=== PATIENT | female | born 1985 | race Caucasian/White ===

== ENCOUNTER 2023-06-07 18:13 | Inpatient (IN) | payer OTHER ==
[~2023-06-07] VITALS: Ht 154.9 cm; Wt 62.2 kg
[2023-06-07] MEDS ORDERED: BUSP15TA47 PO (18:26)
[2023-06-07] MEDS ORDERED: QUET150T14 PO (18:26)
[2023-06-07] MEDS ORDERED: LAMO100T3 PO (18:26)
[2023-06-07 19:06] LABS: HEMATOCRIT 39.7 % (36.0-47.0); HEMOGLOBIN 12.7 g/dl (12.0-15.5); MEAN CORPUSCULAR HEMOGLOBIN 27.9 pg (27.0-33.0); MEAN CORPUSCULAR VOLUME 87.3 fl (80.0-96.0); PLATELET COUNT, AUTOMATED 275 10^3/uL (150-450); RED BLOOD COUNT 4.55 10^6/uL (4.00-5.40); WHITE BLOOD COUNT 6.7 10^3/uL (4.0-10.0)
[2023-06-07 19:21] LABS: AMPHETAMINES LEVEL URINE NEGATIVE (NEGATIVE); BARBITURATES URINE NEGATIVE (NEGATIVE); BENZODIAZEPINES URINE NEGATIVE (NEGATIVE); COCAINE METABOLITE URINE NEGATIVE (NEGATIVE); METHADONE URINE NEGATIVE (NEGATIVE); OPIATES URINE NEGATIVE (NEGATIVE); PHENCYCLIDINE URINE NEGATIVE (NEGATIVE)
[2023-06-07 19:23] LABS: CANNABINOIDS URINE POSITIVE (NEGATIVE); ETHYL ALCOHOL (ETHANOL) < 0.003 % (0.000-0.010)
[2023-06-07 19:25] LABS: ACETAMINOPHEN LEVEL < 2.0 UG/ML (10.0-20.0); ALKALINE PHOSPHATASE 62 U/L (46-116); ALT/SGPT 12 U/L (7.0-40); AST/SGOT 9 U/L (<34); BILIRUBIN,DIRECT 0.1 MG/DL (<0.4); BILIRUBIN,TOTAL 0.4 MG/DL (0.3-1.2); BLOOD UREA NITROGEN 13 MG/DL (9-23); CALCIUM LEVEL 9.7 MG/DL (8.5-10.1); CARBON DIOXIDE LEVEL 30 MMOL/L (20-31); CHLORIDE LEVEL 105 MMOL/L (98-107); CREATININE FOR GFR 0.81 MG/DL (0.55-1.30); GLOMERULAR FILTRATION RATE > 60.0 (>60); GLUCOSE, FASTING 78 MG/DL (60-100); POTASSIUM SERUM 4.1 MMOL/L (3.5-5.1); SALICYLATE LEVEL < 3.0 MG/DL (<30); SODIUM LEVEL 142 MMOL/L (136-145)
[2023-06-07 19:26] LABS: HCG, SERUM QUALITATIVE NEGATIVE (NEGATIVE)
[2023-06-07 19:27] LABS: THYROID STIMULATING HORMONE 1.812 uIU/ML (0.55-4.78)
[2023-06-07] MEDS ORDERED: MED REC CURRENTLY UNOBTAINABLE XX SCH (20:00)
[2023-06-07] MEDS ORDERED: ACETAMINOPHEN TAB 650MG DOSE (2X325MG) PO PRN (21:00)
[2023-06-07] MEDS ORDERED: MAALOX 30 ML SUSP *UDC PO PRN (21:00)
[2023-06-07] MEDS ORDERED: MOM 30ML SUSPENSION UDC PO PRN (21:00)
[2023-06-07 22:13] VITALS: BP 104/65; TEMP 98.4; O2SAT 99
[2023-06-07] MEDS ORDERED: HOME MED LIST COMPLETE! XX SCH (22:55)
[2023-06-08 06:32] VITALS: BP 103/64; TEMP 98.2; O2SAT 100
[2023-06-08 18:04] VITALS: BP 130/68; TEMP 97.3; O2SAT 100
[2023-06-08] MEDS: diphenhydrAMINE 25MG CAP PO PRN (19:32)
[2023-06-08] MEDS: traZODone 50 MG TAB PO PRN (20:21)
[2023-06-09 06:23] VITALS: BP 117/72; TEMP 97.3; O2SAT 100
[2023-06-09] MEDS: MIRALAX *UNIT DOSE* 17GM PACKET PO PRN (08:34)
[2023-06-09] MEDS: lamoTRIgine 100MG TAB PO SCH ×2 (10:32→20:59)
[2023-06-09] MEDS: OLANZapine 5 MG TAB PO SCH ×2 (10:32→20:58)
[2023-06-09 19:08] VITALS: BP 125/82; TEMP 97.8
[2023-06-09] MEDS: traZODone 50 MG TAB PO PRN (20:59)
[2023-06-10 06:29] VITALS: BP 129/86; TEMP 97; O2SAT 100
[2023-06-10] MEDS: OLANZapine 5 MG TAB PO SCH ×2 (08:55→20:05)
[2023-06-10] MEDS: lamoTRIgine 100MG TAB PO SCH ×2 (08:55→20:05)
[2023-06-10] MEDS: IBUPROFEN 400MG TAB PO PRN ×2 (08:56→18:14)
[2023-06-10] MEDS: MIRALAX *UNIT DOSE* 17GM PACKET PO PRN (16:38)
[2023-06-10] MEDS: OLANZapine ORAL DISINTEGRATING TAB 5MG PO PRN (16:38)
[2023-06-10 18:18] VITALS: BP 125/80; TEMP 98.1; O2SAT 100
[2023-06-11 07:00] VITALS: BP 134/82; TEMP 97.5; O2SAT 100
[2023-06-11] MEDS: OLANZapine 5 MG TAB PO SCH (08:09)
[2023-06-11] MEDS: diphenhydrAMINE 25MG CAP PO PRN (08:09)
[2023-06-11] MEDS: lamoTRIgine 100MG TAB PO SCH ×2 (08:10→20:26)
[2023-06-11] MEDS ORDERED: MAGNESIUM CITRATE 300ML BTL PO ONE (09:00)
[2023-06-11] MEDS ORDERED: BISACODYL 5MG TAB PO ONE (09:00)
[2023-06-11] MEDS: OLANZapine 10 MG TAB PO SCH ×2 (09:00→20:26)
[2023-06-11] MEDS: busPIRone 10 MG TAB PO SCH ×2 (09:15→20:26)
[2023-06-11 18:58] VITALS: BP 135/89; TEMP 98.4; O2SAT 100
[2023-06-12] MEDS: OLANZapine ORAL DISINTEGRATING TAB 5MG PO PRN (06:53)
[2023-06-12 07:04] VITALS: BP 112/75; TEMP 97.5; O2SAT 99
[2023-06-12] MEDS: OLANZapine 10 MG TAB PO SCH ×2 (08:06→20:14)
[2023-06-12] MEDS: busPIRone 10 MG TAB PO SCH ×2 (08:06→20:14)
[2023-06-12] MEDS: PREPARATION H OINTMENT (HEMORRHOID) PR PRN ×2 (08:06→17:22)
[2023-06-12] MEDS: lamoTRIgine 100MG TAB PO SCH ×2 (08:06→20:14)
[2023-06-12] MEDS: IBUPROFEN 400MG TAB PO PRN (09:33)
[2023-06-12 17:17] VITALS: BP 130/66; TEMP 97.9
[2023-06-12] MEDS: traZODone 50 MG TAB PO PRN (20:14)
[2023-06-13 06:09] VITALS: BP 133/72; TEMP 97.8; O2SAT 100
[2023-06-13] MEDS: lamoTRIgine 100MG TAB PO SCH ×2 (08:14→20:27)
[2023-06-13] MEDS: busPIRone 10 MG TAB PO SCH ×2 (08:14→20:27)
[2023-06-13] MEDS: OLANZapine 10 MG TAB PO SCH ×2 (08:14→20:27)
[2023-06-13] MEDS: OLANZapine ORAL DISINTEGRATING TAB 5MG PO PRN ×2 (10:01→19:01)
[2023-06-13] MEDS: PREPARATION H OINTMENT (HEMORRHOID) PR PRN (12:35)
[2023-06-13 15:32] VITALS: BP 124/78; TEMP 97.1; O2SAT 99
[2023-06-13] MEDS: traZODone 50 MG TAB PO PRN (20:27)
[2023-06-14 06:18] VITALS: BP 134/77; TEMP 98.2
[2023-06-14] MEDS ORDERED: TRAZ-252 PO (06:31)
[2023-06-14] MEDS ORDERED: OLAN1TAB20 PO (06:31)
[2023-06-14] MEDS ORDERED: LAMO100T80 PO (06:31)
[2023-06-14] MEDS ORDERED: BUSP10TA PO (06:31)
[2023-06-14] MEDS: lamoTRIgine 100MG TAB PO SCH (08:01)
[2023-06-14] MEDS: busPIRone 10 MG TAB PO SCH (08:01)
[2023-06-14] MEDS: OLANZapine 10 MG TAB PO SCH (08:02)
== END 2023-06-14 11:27 | disposition home or self-care (01) | DRG 753 ==
LOC: M ED 18:13 → M ED INP 21:00 → M PSY 22:05
PROVIDERS: ADMIT Student in an Organized Health Care Education/Training Program; ATTEND Student in an Organized Health Care Education/Training Program
DX: F31.9 Bipolar disorder, unspecified (principal); R45.851 Suicidal ideations; F60.2 Antisocial personality disorder; K58.1 Irritable bowel syndrome with constipation; F41.9 Anxiety disorder, unspecified; F17.210 Nicotine dependence, cigarettes, uncomplicated; Z91.411 Personal history of adult psychological abuse; Z20.822 Contact with and (suspected) exposure to COVID-19; Z79.899 Other long term (current) drug therapy; Z73.3 Stress, not elsewhere classified; Z71.6 Tobacco abuse counseling